=== PATIENT | female | born 1995 | race Caucasian/White ===

== ENCOUNTER 2017-02-02 16:55 | Emergency (ER) | payer MEDICAID ==
[~2017-02-02 16:55] MED LIST: CIPRO 250MG TA250 MG PO; DEPO-PROVER150 MG/M1 IM; DEPO-PROVER150 MG/M2 IM; KETOROLAC TROME10 MG PO; KETOROLAC10 MG PO; NORCO 325 MG-51 TA1 PO; NORCO 325 MG-51 TAB PO; ZOLOFT
[2017-02-02] MEDS ORDERED: PERCOCET 325 MG1 TA2 PO (20:33)
== END 2017-02-02 20:54 | disposition home or self-care (01) ==
LOC: ED 16:55
DX: S76.912A Strain of unspecified muscles, fascia and tendons at thigh level, left thigh, initial encounter (principal); X58.XXXA Exposure to other specified factors, initial encounter
CPT/HCPCS: J3010

== ENCOUNTER 2017-03-04 21:36 | Emergency (ER) | payer MEDICAID ==
[~2017-03-04 21:36] MED LIST changes: +PERCOCET 325 MG1 TA2 PO
[2017-03-05 00:52] VITALS: BP 124/71
== END 2017-03-05 00:52 | disposition home or self-care (01) ==
LOC: ED 21:36
DX: M25.511 Pain in right shoulder (principal); G54.0 Brachial plexus disorders; Z33.1 Pregnant state, incidental
CPT/HCPCS: J1885

== ENCOUNTER 2018-02-14 21:11 | Emergency (ER) | payer SELFPAY ==
[~2018-02-14] VITALS: Ht 170.2 cm; Wt 77.5 kg
[2018-02-14 21:44] LABS: EOS # 0.2 (0.04-0.40); EOS % 3.8 % (1.0-5.0); HEMATOCRIT 36.1 % (37.0-47.0); HEMOGLOBIN 11.3 g/dL (12.5-16.0); LYMPH# 2.4 (1.50-4.00); MEAN CELL VOLUME 86 fl (78-100); MEAN CORPUSCULAR HEMOGLOBIN 27 pg (27-31); MEAN CORPUSCULAR HGB CONC 31 g/dL (33-37); MEAN PLATELET VOLUME 10.4 fl (7.4-10.4); MONO # 0.5 (0.20-0.80); NEU # 2.2 (1.40-6.50); PLATELET COUNT 213 K/mm3 (130-400); RED BLOOD COUNT 4.21 M/mm3 (4.10-5.30); RED CELL DISTRIBUTION WIDTH 13.6 % (11.5-14.5); WHITE BLOOD COUNT 5.3 K/mm3 (4.8-10.8)
[2018-02-14 22:00] LABS: ALBUMIN 3.8 g/dL (3.5-5.0); BUN/CREATININE RATIO 16.1 (6.0-26.0); CALCIUM 9.1 mg/dL (8.4-10.2); POTASSIUM 3.7 mmol/L (3.6-5.0); TOTAL BILIRUBIN 0.4 mg/dL (0.2-1.3); TOTAL PROTEIN 7.5 g/dL (6.3-8.2)
[2018-02-14 22:06] LABS: URINE APPEARANCE HAZY; URINE COLOR YELLOW
[2018-02-14 22:07] LABS: PH-URINE 5.5 (5.0 - 8.0); URINE BILIRUBIN NEGATIVE (NEGATIVE); URINE BLOOD NEGATIVE (NEGATIVE); URINE GLUCOSE NEGATIVE (NEGATIVE); URINE KETONE NEGATIVE (NEGATIVE); URINE LEUKOCYTE ESTERASE 1+ (NEGATIVE); URINE NITRATE NEGATIVE (NEGATIVE); URINE PROTEIN(semi-quant) NEGATIVE (NEGATIVE); URINE UROBILINOGEN NORMAL (NORMAL)
[2018-02-14] MEDS ORDERED: ZOFRAN4 M2 PO (22:16)
[2018-02-14 22:23] VITALS: BP 104/71
== END 2018-02-14 22:26 | disposition home or self-care (01) ==
LOC: ED 21:11
PROVIDERS: Nurse Practitioner
DX: R10.84 Generalized abdominal pain (principal); R11.0 Nausea

== ENCOUNTER 2018-12-01 18:16 | Emergency (ER) | payer MEDICAID ==
[~2018-12-01] VITALS: Ht 170.2 cm; Wt 69.1 kg
[~2018-12-01 18:16] MED LIST changes: +ZOFRAN4 M2 PO
[2018-12-01] MEDS ORDERED: ESCITALOPRAM10 MG PO (18:29)
[2018-12-01] MEDS ORDERED: BRINTELLIX10 MG PO (18:29)
[2018-12-01] MEDS ORDERED: DESYREL50 MG PO (18:29)
[2018-12-01 20:22] VITALS: BP 104/70
== END 2018-12-01 20:22 | disposition home or self-care (01) ==
LOC: ED 18:16
DX: G56.01 Carpal tunnel syndrome, right upper limb (principal)

== ENCOUNTER 2019-08-17 23:17 | Emergency (ER) | payer SELFPAY ==
[~2019-08-17 23:17] MED LIST changes: +BRINTELLIX10 MG PO; +DESYREL50 MG PO; +ESCITALOPRAM10 MG PO
[2019-08-18 00:21] LABS: EOS # 0.2 (0.04-0.40); EOS % 2.7 % (1.0-5.0); HEMATOCRIT 39.1 % (37.0-47.0); HEMOGLOBIN 12.7 g/dL (12.5-16.0); LYMPH# 2.5 (1.50-4.00); MEAN CELL VOLUME 84 fl (78-100); MEAN CORPUSCULAR HEMOGLOBIN 27 pg (27-31); MEAN CORPUSCULAR HGB CONC 33 g/dL (33-37); MEAN PLATELET VOLUME 10.4 fl (7.4-10.4); MONO # 0.4 (0.20-0.80); NEU # 2.5 (1.40-6.50); PLATELET COUNT 211 K/mm3 (130-400); RED BLOOD COUNT 4.63 M/mm3 (4.10-5.30); RED CELL DISTRIBUTION WIDTH 14.8 % (11.5-14.5); WHITE BLOOD COUNT 5.6 K/mm3 (4.8-10.8)
[2019-08-18 01:21] VITALS: BP 106/71
== END 2019-08-18 01:32 | disposition home or self-care (01) ==
LOC: ED 23:17
PROVIDERS: Nurse Practitioner Family
DX: S06.0X1A Concussion with loss of consciousness of 30 minutes or less, initial encounter (principal); S16.1XXA Strain of muscle, fascia and tendon at neck level, initial encounter; F32.9 Major depressive disorder, single episode, unspecified; F41.9 Anxiety disorder, unspecified; J45.909 Unspecified asthma, uncomplicated; F90.9 Attention-deficit hyperactivity disorder, unspecified type; V47.5XXA Car driver injured in collision with fixed or stationary object in traffic accident, initial encounter
CPT/HCPCS: J1885; L0172

== ENCOUNTER 2019-09-04 18:40 | Emergency (ER) | payer SELFPAY ==
[2019-09-04 20:50] VITALS: BP 112/75
== END 2019-09-04 20:50 | disposition home or self-care (01) ==
LOC: ED 18:40
DX: M25.511 Pain in right shoulder (principal); F41.9 Anxiety disorder, unspecified; F90.9 Attention-deficit hyperactivity disorder, unspecified type; J45.909 Unspecified asthma, uncomplicated; F32.9 Major depressive disorder, single episode, unspecified; Z90.89 Acquired absence of other organs; Z98.890 Other specified postprocedural states
CPT/HCPCS: J1885

== ENCOUNTER → 2021-02-13 | Outpatient (CLI) | payer MEDICAID ==
[~2021-02-13] MED LIST changes: +TRAMADOL 50 MG TAB PO
== END ==
LOC: RAD 17:43
DX: G93.2 Benign intracranial hypertension (principal)

== ENCOUNTER 2021-05-25 11:39 | Emergency (ER) | payer MEDICAID ==
[~2021-05-25 11:39] MED LIST changes: -TRAMADOL 50 MG TAB PO
[2021-05-25] MEDS ORDERED: TRAMADOL 50 MG TAB PO (14:11)
[2021-05-25 14:21] VITALS: BP 116/68
== END 2021-05-25 14:21 | disposition home or self-care (01) ==
LOC: ED 11:39
DX: M25.511 Pain in right shoulder (principal); F41.9 Anxiety disorder, unspecified; F32.9 Major depressive disorder, single episode, unspecified; Z87.81 Personal history of (healed) traumatic fracture; Z79.899 Other long term (current) drug therapy
CPT/HCPCS: J1885

== ENCOUNTER 2022-07-23 11:27 | Emergency (ER) | payer MEDICAID ==
[~2022-07-23 11:27] MED LIST changes: +TRAMADOL 50 MG TAB PO
[2022-07-23 11:34] VITALS: BP 108/67
[2022-07-23] MEDS ORDERED: GABAPENTIN100 MG PO (11:35)
[2022-07-23] MEDS ORDERED: LAMOTRIGINE100 M3 PO (11:35)
[2022-07-23] MEDS ORDERED: PREDNISONE20 MG PO (12:18)
== END 2022-07-23 12:21 | disposition home or self-care (01) ==
LOC: ED 11:27
DX: M77.8 Other enthesopathies, not elsewhere classified (principal)

== ENCOUNTER 2022-08-26 17:43 | Emergency (ER) | payer MEDICAID ==
[~2022-08-26] VITALS: Ht 167.6 cm; Wt 90.9 kg
[~2022-08-26 17:43] MED LIST changes: +GABAPENTIN100 MG PO; +LAMOTRIGINE100 M3 PO; +PREDNISONE20 MG PO
[2022-08-26 18:20] LABS: BASO # 0.01 K/mm3 (0.02-0.10); EOS # 0.15 K/mm3 (0.04-0.40); EOS % 2.2 % (1.0-5.0); HEMATOCRIT 40.8 % (37.0-47.0); HEMOGLOBIN 13.5 g/dL (12.5-16.0); LYMPH# 2.41 K/mm3 (1.50-4.00); MEAN CELL VOLUME 87 fl (78-100); MEAN CORPUSCULAR HEMOGLOBIN 29 pg (27-31); MEAN CORPUSCULAR HGB CONC 33 g/dL (33-37); MEAN PLATELET VOLUME 10.2 fl (7.4-10.4); MONO # 0.28 K/mm3 (0.20-0.80); PLATELET COUNT 142 K/mm3 (130-400); RED BLOOD COUNT 4.69 M/mm3 (4.10-5.30); RED CELL DISTRIBUTION WIDTH 12.5 % (11.5-14.5); WHITE BLOOD COUNT 6.8 K/mm3 (4.8-10.8)
[2022-08-26 18:31] LABS: ALBUMIN 3.8 g/dL (3.5-5.0); POTASSIUM 3.7 mmol/L (3.5-5.1)
[2022-08-26 18:32] LABS: CALCIUM 8.8 mg/dL (8.3-10.5)
[2022-08-26 18:34] LABS: TOTAL PROTEIN 7.1 g/dL (6.4-8.3)
[2022-08-26 18:35] LABS: TOTAL BILIRUBIN 0.7 mg/dL (0.2-1.2)
[2022-08-26 18:40] LABS: MAGNESIUM 1.76 mg/dL (1.60-2.60)
[2022-08-26 19:17] LABS: PH-URINE 5.5 (5.0 - 8.0); URINE APPEARANCE CLEAR; URINE BILIRUBIN NEGATIVE (NEGATIVE); URINE BLOOD TRACE (NEGATIVE); URINE COLOR YELLOW; URINE GLUCOSE NEGATIVE (NEGATIVE); URINE KETONE NEGATIVE (NEGATIVE); URINE LEUKOCYTE ESTERASE NEGATIVE (NEGATIVE); URINE NITRATE NEGATIVE (NEGATIVE); URINE PROTEIN(semi-quant) 1+ (NEGATIVE); URINE UROBILINOGEN NORMAL (NORMAL); URINE WBC 0-1 /hpf (0-3)
[2022-08-26 23:16] VITALS: BP 105/68
== END 2022-08-26 23:15 | disposition home or self-care (01) ==
LOC: ED 17:43
PROVIDERS: Physician Assistant
DX: F44.5 Conversion disorder with seizures or convulsions (principal); F32.A Depression, unspecified; F41.9 Anxiety disorder, unspecified; R53.1 Weakness
CPT/HCPCS: J1885

== ENCOUNTER 2022-09-03 16:54 | Emergency (ER) | payer MEDICAID ==
[2022-09-03 22:08] LABS: URINE APPEARANCE HAZY; URINE BILIRUBIN NEGATIVE (NEGATIVE); URINE BLOOD NEGATIVE (NEGATIVE); URINE COLOR YELLOW; URINE GLUCOSE NEGATIVE (NEGATIVE); URINE KETONE NEGATIVE (NEGATIVE); URINE LEUKOCYTE ESTERASE NEGATIVE (NEGATIVE); URINE NITRATE NEGATIVE (NEGATIVE); URINE PROTEIN(semi-quant) TRACE (NEGATIVE); URINE UROBILINOGEN NORMAL (NORMAL)
[2022-09-03 22:31] VITALS: BP 109/78
== END 2022-09-03 22:31 | disposition home or self-care (01) ==
LOC: ED 16:54
PROVIDERS: Physician Assistant
DX: R53.1 Weakness (principal); R39.198 Other difficulties with micturition; Z91.040 Latex allergy status

== ENCOUNTER 2022-12-15 11:04 | Emergency (ER) | payer MEDICAID ==
[~2022-12-15] VITALS: Wt 103.0 kg
[~2022-12-15 11:04] MED LIST changes: +DESVENLAFAXINE50 M3 PO; +RISPERIDONE0.5 M2 PO
[2022-12-15 11:50] LABS: BASO # 0.02 K/mm3 (0.02-0.10); EOS # 0.15 K/mm3 (0.04-0.40); EOS % 2.6 % (1.0-5.0); HEMATOCRIT 42.2 % (37.0-47.0); HEMOGLOBIN 14.1 g/dL (12.5-16.0); LYMPH# 2.16 K/mm3 (1.50-4.00); MEAN CELL VOLUME 85 fl (78-100); MEAN CORPUSCULAR HEMOGLOBIN 28 pg (27-31); MEAN CORPUSCULAR HGB CONC 33 g/dL (33-37); MEAN PLATELET VOLUME 9.4 fl (7.4-10.4); MONO # 0.28 K/mm3 (0.20-0.80); NEU # 3.19 K/mm3 (1.40-6.50); PLATELET COUNT 223 K/mm3 (130-400); RED BLOOD COUNT 4.98 M/mm3 (4.10-5.30); RED CELL DISTRIBUTION WIDTH 13.1 % (11.5-14.5); WHITE BLOOD COUNT 5.8 K/mm3 (4.8-10.8)
[2022-12-15 11:58] LABS: ALBUMIN 4.3 g/dL (3.5-5.0); POTASSIUM 3.6 mmol/L (3.5-5.1)
[2022-12-15 11:59] LABS: CALCIUM 9.7 mg/dL (8.3-10.5)
[2022-12-15 12:02] LABS: TOTAL BILIRUBIN 0.6 mg/dL (0.2-1.2); TOTAL PROTEIN 7.7 g/dL (6.4-8.3)
[2022-12-15] MEDS ORDERED: LATUDA20 MG PO (12:22)
[2022-12-15] MEDS ORDERED: CELEXA 20MG20 MG/TA1 PO (12:23)
[2022-12-15] MEDS ORDERED: HYDROXYZINE HCL25 M1 PO (12:23)
[2022-12-15 14:30] LABS: URINE APPEARANCE CLEAR; URINE BILIRUBIN NEGATIVE (NEGATIVE); URINE BLOOD NEGATIVE (NEGATIVE); URINE COLOR YELLOW; URINE GLUCOSE NEGATIVE (NEGATIVE); URINE KETONE NEGATIVE (NEGATIVE); URINE LEUKOCYTE ESTERASE TRACE (NEGATIVE); URINE NITRATE NEGATIVE (NEGATIVE); URINE PROTEIN(semi-quant) NEGATIVE (NEGATIVE); URINE UROBILINOGEN NORMAL (NORMAL); URINE WBC 0-1 /hpf (0-3)
[2022-12-15 15:23] VITALS: BP 123/77
== END 2022-12-15 15:30 | disposition home or self-care (01) ==
LOC: ED 11:04
PROVIDERS: Physician Assistant
DX: R56.9 Unspecified convulsions (principal); Z91.040 Latex allergy status

== ENCOUNTER 2024-04-26 15:28 | Emergency (ER) | payer MEDICARE, MEDICAID ==
[~2024-04-26] VITALS: Ht 162.6 cm; Wt 102.0 kg
[~2024-04-26 15:28] MED LIST changes: +CELEXA 20MG20 MG/TA1 PO; +HYDROXYZINE HCL25 M1 PO; +LATUDA20 MG PO
[2024-04-26 16:19] LABS: ALBUMIN 4.1 g/dL (3.5-5.0); BASO # 0.02 K/mm3 (0.02-0.10); HEMATOCRIT 42.6 % (37.0-47.0); HEMOGLOBIN 14.1 g/dL (12.5-16.0); LYMPH# 2.37 K/mm3 (1.50-4.00); MEAN CELL VOLUME 88 fl (78-100); MEAN CORPUSCULAR HEMOGLOBIN 29 pg (27-31); MEAN CORPUSCULAR HGB CONC 33 g/dL (33-37); MEAN PLATELET VOLUME 9.8 fl (7.4-10.4); MONO # 0.29 K/mm3 (0.20-0.80); NEU # 3.82 K/mm3 (1.40-6.50); PLATELET COUNT 247 K/mm3 (130-400); RED BLOOD COUNT 4.86 M/mm3 (4.10-5.30); RED CELL DISTRIBUTION WIDTH 12.9 % (11.5-14.5); WHITE BLOOD COUNT 6.7 K/mm3 (4.8-10.8)
[2024-04-26 16:21] LABS: CALCIUM 9.4 mg/dL (8.3-10.5)
[2024-04-26 16:22] LABS: TOTAL PROTEIN 7.5 g/dL (6.4-8.3)
[2024-04-26 16:24] LABS: TOTAL BILIRUBIN 0.7 mg/dL (0.2-1.2)
[2024-04-26 17:28] VITALS: BP 116/98
== END 2024-04-26 17:34 | disposition home or self-care (01) ==
LOC: ED 15:28
PROVIDERS: Family Medicine
DX: R20.0 Anesthesia of skin (principal); R53.1 Weakness; Z91.040 Latex allergy status